=== PATIENT | female | born 1925 | race Caucasian/White ===

== ENCOUNTER 2016-07-30 11:34 | Inpatient (IN) | payer MEDICARE, OTHER ==
[~2016-07-30] VITALS: Ht 162.6 cm; Wt 47.9 kg
--- NOTE | 2016-08-01 17:36 | HP ---
ADMIT: 07/30/2016 RM/LOC: [facility] MR#: [id number] [facility]#: [id number] [id number] [id number] [address] [place] [address] History and Physical SEX: F AGE: 89 : 1925 DATE OF SERVICE: CHIEF COMPLAINT: Weakness. HISTORY OF PRESENT ILLNESS: The patient is a fantastic 89-year-old female, pleasantly demented, who lives at home with her and son. She has a history of hemorrhagic stroke in the past, has ongoing dementia from it. Had been in her usual state of health up until the last week or so. Increasing weakness. Troubles where she cannot even stand to bear her weight at times now. Had been eating and drinking okay according to her . No recent fevers, chills, nausea, or vomiting. No dysuria reported. She does not feel like she has really lost that much weight. Recently, we have been switching her over to Dilantin from Keppra due to her seizure disorder she has had. This is because of some concerns of dizziness she has been having chronically. Still has this dizziness. Otherwise, no reported palpitations. The patient overall is a poor historian. PAST MEDICAL HISTORY: 1. History of aortic stenosis. 2. Hypertension. 3. History of hemorrhagic stroke. 4. Chronic dementia. 5. History of diastolic dysfunction. 6. GERD. 7. History of melanoma. 8. Hyperlipidemia. 9. History of SIADH. 10.Seizure disorder, on chronic antiepileptic drugs. MEDICATIONS: She is on: 1. Tylenol. 2. Fosamax. 3. Keppra 500 mg p.o. b.i.d. 4. Midodrine 2.5 mg p.o. t.i.d. 5. Dilantin 100 mg twice daily, recently increased this dose. 6. Vitamin B6. 7. Multivitamin. FAMILY HISTORY: Significant for cancer in her mother. Diabetes and heart disease in her father. SOCIAL HISTORY: Nonsmoker and non-drinking. Lives at home with her . REVIEW OF SYSTEMS: As per HPI. Otherwise, reviewed. Somewhat suspect to accuracy in regard to dementia. Otherwise, completely reviewed. PHYSICAL EXAMINATION: VITAL SIGNS: Blood pressure 147/82, pulse 75, respiratory rate 18, O2 saturation 93% on room air, afebrile. GENERAL: She is alert, oriented to person. No acute distress. Resting ADMIT: 07/30/2016 RM/LOC: [facility] MR#: [id number] [id number] [address] [address] [place] [address] History and Physical SEX: F AGE: 89 : 1925 comfortably in bed. HEENT: Normocephalic, atraumatic. Pupils are equal bilaterally. No icterus. Slightly dry mucous membranes. NECK: No lymphadenopathy. Trachea midline. LUNGS: Clear to auscultation bilaterally. No wheezes, rales, or rhonchi. HEART: Regular rate and rhythm. No murmurs, rubs, or gallops. ABDOMEN: Soft, nontender, and nondistended. Bowel sounds present. EXTREMITIES: No cyanosis, clubbing, or edema. MUSCULOSKELETAL: 5/5 strength in all 4 extremities. Repositions herself in bed reasonably well. NEUROLOGICAL: No focal deficits noted. No pronator drift. Cranial nerves II through XII are grossly intact. SKIN: No rashes noted. PSYCHIATRIC: Very pleasant as always. LABORATORY AND X-RAY DATA: Her sodium was 128, baseline is greater than 138 in a recent office visit. It was 134 on recent check. TSH 2.1. UA is negative. Potassium 4.3, creatinine 0.8, BUN 14. AST and ALT within normal limits. Hemoglobin 13.3. CT of her head shows no acute findings. Reviewed personally. She has some encephalomalacia from a prior hemorrhagic stroke. ASSESSMENT: 1. Hyponatremia, symptomatic. 2. Seizure disorder. 3. Weakness. 4. Dementia. 5. History of hemorrhagic stroke. 6. Dizziness. PLAN: At this point in time, her hyponatremia, I think, is making her symptomatic. Given her history of SIADH in the distant past, I think she warrants inpatient admission for serial monitoring of her sodium while we rehydrate her to patient would not worsen. It does not sound like she has much of a history of dehydration from being at home. We will try gentle hydration ADMIT: 07/30/2016 RM/LOC: [facility] MR#: [id number] [id number] [address] [place] [address] [place] [address] History and Physical SEX: F AGE: 89 : 1925 to see if it helps, however. If does not help, we will do a fluid restriction. Her thyroid check is normal. Otherwise, we will check a Dilantin level. We will cut down on her Keppra dose. We will keep her on Dilantin for now. Overall has weakness with easy fatigability. May not be able to return home. We will get Social Work involved regarding possible [place] [facility]. We will have PT work with her. This is quite a dramatic change for her from her baseline, but overall she walks in to clinic and is quite spry despite her dementia. Likely we will take a while to monitor and see if we can improve her while she is inpatient. Geraldo Andino MD/ marie JOB #: [id number] CC: Geraldo Andino, Attending Physician Geraldo Andino, Family Physician
--- NOTE | 2016-08-03 11:37 | DS ---
ADMIT: 07/30/2016 RM/LOC: [address] [facility] MR#: [id number] [address] [address] [address] [place] [address] Discharge Summary SEX: F AGE: 89 : 1925 ADMISSION DATE: 07/30/2016 DISCHARGE DATE: 08/02/2016 CONSULTATIONS: None. FINAL DIAGNOSES: 1. Depakote toxicity resolved. 2. Pansensitive E. (Escherichia) coli urinary tract infection resolving on antibiotics. 3. Dementia stable. 4. Deconditioning. 5. Impaired mobility. 6. Chronic hyponatremia stable. REASON FOR ADMISSION: Please see H and P dictated by Dr. Berumen. However, briefly, the patient was admitted with Depakote toxicity and various electrolyte disturbances. HOSPITAL COURSE: The patient is admitted to the service of [facility] under the care of Dr. Andino. Does receive appropriate goal-directed therapy for intervention of diagnoses above. Improves nicely throughout her hospitalization. Has improvement of her laboratories, normal nontoxic level of Depakote on day of discharge, sodium is stable at 130. She is eating and drinking and moving her bowels. She is currently on ciprofloxacin for a E. coli UTI. She discharges to [facility]. DISPOSITION: custodial facility. DISCHARGE CONDITION: Stable. DISCHARGE MEDICATIONS: See medication reconciliation, it is reviewed and accurate. DISCHARGE INSTRUCTIONS: Discharge to [facility] facility. Follow up with Dr. Berumen in 1-2 weeks and will have some follow-up laboratories on Thursday as well. She will finish out Cipro for a UTI. I discussed this plan with the patient, as well as patient's . Expressed understanding, was in agreement, had no further questions. Thirty minutes spent on discharge activities of this patient. Negrito Wright MD/ steven JOB #: [id number] CC: Geraldo Andino MD, Attending Physician Geraldo Andino MD, Family Physician
[2016-08-04] MEDS ORDERED: PRO-AMATINE2.5 MG PO (10:30)
[2016-08-04] MEDS ORDERED: DILANTIN INFATA50 MG PO (10:30)
[2016-08-04] MEDS ORDERED: CIPRO DPS500 MG PO (10:30)
[2016-08-04] MEDS ORDERED: MAALOX DPS30 ML PO (10:31)
[2016-08-04] MEDS ORDERED: COLACE-DPS100 MG PO (10:31)
[2016-08-04] MEDS ORDERED: FOSAMAX70 MG PO (10:31)
[2016-08-04] MEDS ORDERED: TYLENOL DPS325 MG PO (10:31)
[2016-08-04] MEDS ORDERED: OCUVITE SOFTGE1 EACH PO (10:32)
--- NOTE | 2016-08-07 13:23 | ER ---
ADMIT: 07/30/2016 RM/LOC: [address] [facility] MR#: [id number] [address] [address] [address] [place] [address] Emergency Room Report SEX: F AGE: 89 : 1925 DATE: 07/30/2016 TIME: 11:34 Please refer to my T-sheet for complete H and P. HISTORY OF PRESENT ILLNESS: Briefly, the patient is an 89-year-old who comes with general weakness, decreased energy. It has been going on a week and half or so. She has a history of dementia, SIADH. PHYSICAL EXAMINATION: VITAL SIGNS: Her blood pressure 146/62, pulse 81, respirations 17, temperature 96.6, saturating 100%. GENERAL: No acute distress. HEENT: Grossly normal. LUNGS: Clear. HEART: Regular. Grade 3/6 systolic murmur. NEURO: She is a little bit confused, but otherwise nonfocal. EMERGENCY DEPARTMENT COURSE: CBC was normal. Chemistries normal except sodium 121, glucose 150. TSH is 2.12. Urine showed many bacteria, otherwise normal. I gave her 500 mL normal saline bolus. We did a Dilantin level. I talked to Dr. Andino, will admit to the hospital. ASSESSMENT: 1. Weakness. 2. Hyponatremia. PLAN: Admit. Peña Alejo MD/ kendalll JOB #: [id number] CC: Geraldo Andino MD, Attending Physician Geraldo Andino MD, Family Physician
== END 2016-08-02 13:00 | DRG 948 ==
LOC: ER 11:34 → 5MS 13:10
PROVIDERS: ADMIT Internal Medicine
DX: R53.1 Weakness (principal); T42.6X5A Adverse effect of other antiepileptic and sedative-hypnotic drugs, initial encounter; R42 Dizziness and giddiness; E87.1 Hypo-osmolality and hyponatremia; N39.0 Urinary tract infection, site not specified; F03.90 Unspecified dementia, unspecified severity, without behavioral disturbance, psychotic disturbance, mood disturbance, and anxiety; B96.20 Unspecified Escherichia coli [E. coli] as the cause of diseases classified elsewhere; G40.909 Epilepsy, unspecified, not intractable, without status epilepticus; I69.898 Other sequelae of other cerebrovascular disease; I35.0 Nonrheumatic aortic (valve) stenosis; I10 Essential (primary) hypertension; K21.9 Gastro-esophageal reflux disease without esophagitis; Z85.820 Personal history of malignant melanoma of skin; E78.5 Hyperlipidemia, unspecified